=== PATIENT | female | born 2000 | race Hispanic/Latino ===

== ENCOUNTER 2023-08-13 21:19 | Day surgery (SDC) | payer OTHER ==
[2023-08-13 22:04] VITALS: BMI 41.7
[2023-08-13] MEDS ORDERED: hydrALAZINE 20 MG/ML VIAL SLOW IVP PRN (22:42)
[2023-08-13] MEDS ORDERED: Acetaminophen 500 MG TAB PO SCH (23:00)
[2023-08-13 23:09] LABS: Creatinine, Urine 149.05 mg/dL (47-110)
[2023-08-13 23:22] LABS: #Eosinphils 0.1 10x3/uL (0.0-0.5); #Monocytes 0.9 10x3/uL (0.0-1.1); #Neutrophils 7.3 10x3/uL (1.5-8.4); %Basophils 0.3 % (0.0-2.0); %Eosinophils 0.6 % (0.0-6.0); %Lymphocytes 22.7 % (18.0-47.0); %Monocytes 8.1 % (0.0-10.0); %Neutrophils 67.7 % (40.0-75.0); Hematocrit 35.7 % (34.9-44.5); Hemoglobin 11.8 g/dL (12.0-15.5); Mean Corpuscular HGB CONC 33.1 g/dL (32.0-36.0); Mean Corpuscular Hemoglobin 27.4 pg (27.0-33.0); Mean Corpuscular Volume 82.8 fl (81.6-98.3); Mean Platelet Volume 11.5 fl (7.4-10.4); Platelet Count 216 10x3/uL (150-450); RBC Distribution Width 13.5 % (11.5-14.5); Red Blood Cell (RBC) Count 4.31 10x6/uL (3.90-5.03); White Blood Cell (WBC) Count 10.9 10x3/uL (3.5-10.5)
[2023-08-13 23:34] LABS: ALT (SGPT) 8 U/L (8-55); AST (SGOT) 12 U/L (5-34); Albumin 3.2 g/dL (3.5-5.0); Alkaline Phosphatase 79 U/L (40-110); Anion Gap 15 mmol/L (10-20); BUN (Urea Nitrogen) 9 mg/dL (7.0-18.7); Bilirubin, Total 0.3 mg/dL (0.2-1.2); Calc. Creatinine Clearance 183 mL/min (70-130); Carbon Dioxide 20 mmol/L (22-29); Chloride 103 mmol/L (98-107); Estimated GFR 114; Glucose 193 mg/dL (70-105); Potassium 3.7 mmol/L (3.5-5.1); Protein, Total 6.2 g/dL (6.0-8.3); Sodium 134 mmol/L (136-145)
== END 2023-08-14 00:35 | disposition home or self-care (01) ==
LOC: CSHLD/OP 21:19
PROVIDERS: ATTEND Student in an Organized Health Care Education/Training Program
DX: O99.891 Other specified diseases and conditions complicating pregnancy (principal); O99.213 Obesity complicating pregnancy, third trimester; O24.113 Pre-existing type 2 diabetes mellitus, in pregnancy, third trimester; R51.9 Headache, unspecified; Z79.899 Other long term (current) drug therapy; Z79.84 Long term (current) use of oral hypoglycemic drugs; Z79.4 Long term (current) use of insulin; Z3A.34 34 weeks gestation of pregnancy
CPT/HCPCS: 80053; 82570; 84156; 85025; 99283

== ENCOUNTER 2023-08-19 12:10 | Day surgery (SDC) | payer OTHER ==
[2023-08-19 12:42] VITALS: BMI 41.7
[2023-08-19] MEDS ORDERED: hydrALAZINE 20 MG/ML VIAL SLOW IVP PRN (12:50)
[2023-08-19] MEDS ORDERED: Acetaminophen 500 MG TAB PO SCH (13:00)
[2023-08-19 13:52] LABS: #Monocytes 0.7 10x3/uL (0.0-1.1); %Basophils 0.2 % (0.0-2.0); %Eosinophils 0.4 % (0.0-6.0); %Lymphocytes 18.4 % (18.0-47.0); %Monocytes 6.4 % (0.0-10.0); %Neutrophils 73.9 % (40.0-75.0); Hematocrit 39.3 % (34.9-44.5); Hemoglobin 13.2 g/dL (12.0-15.5); Mean Corpuscular HGB CONC 33.6 g/dL (32.0-36.0); Mean Corpuscular Hemoglobin 27.3 pg (27.0-33.0); Mean Corpuscular Volume 81.2 fl (81.6-98.3); Platelet Count 249 10x3/uL (150-450); RBC Distribution Width 13.8 % (11.5-14.5); Red Blood Cell (RBC) Count 4.84 10x6/uL (3.90-5.03); White Blood Cell (WBC) Count 10.8 10x3/uL (3.5-10.5)
[2023-08-19 15:42] LABS: ALT (SGPT) 11 U/L (8-55); AST (SGOT) 15 U/L (5-34); Albumin 3.5 g/dL (3.5-5.0); Alkaline Phosphatase 94 U/L (40-110); Anion Gap 18 mmol/L (10-20); BUN (Urea Nitrogen) 6 mg/dL (7.0-18.7); Bilirubin, Total 0.3 mg/dL (0.2-1.2); Calc. Creatinine Clearance 225 mL/min (70-130); Calcium 8.9 mg/dL (7.8-10.44); Carbon Dioxide 16 mmol/L (22-29); Chloride 105 mmol/L (98-107); Estimated GFR 128; Globulin 2.9 g/dL (2.4-3.5); Glucose 75 mg/dL (70-105); Potassium 3.7 mmol/L (3.5-5.1); Protein, Total 6.4 g/dL (6.0-8.3); Sodium 135 mmol/L (136-145)
== END 2023-08-19 16:23 | disposition home or self-care (01) ==
LOC: CSHLD/OP 12:10
PROVIDERS: ATTEND Student in an Organized Health Care Education/Training Program
DX: O99.891 Other specified diseases and conditions complicating pregnancy (principal); R51.9 Headache, unspecified; O24.113 Pre-existing type 2 diabetes mellitus, in pregnancy, third trimester; O99.513 Diseases of the respiratory system complicating pregnancy, third trimester; J45.909 Unspecified asthma, uncomplicated; O26.893 Other specified pregnancy related conditions, third trimester; O12.13 Gestational proteinuria, third trimester; Z3A.35 35 weeks gestation of pregnancy
CPT/HCPCS: 36415; 80053; 82570; 84156; 85025

== ENCOUNTER 2023-08-30 18:00 | Inpatient (IN) | payer OTHER ==
[2023-08-31] MEDS ORDERED: HYDROcodone/Acetaminophen 5/325 mg Tablet PO PRN (06:45)
[2023-08-31] MEDS ORDERED: Acetaminophen 500 MG TAB PO PRN (06:45)
[2023-08-31] MEDS ORDERED: Ibuprofen 800 MG TAB PO PRN (06:45)
[2023-08-31] MEDS ORDERED: fentaNYL 50 mcg/mL 1 mL Vial SLOW IVP PRN (06:45)
[2023-08-31] MEDS ORDERED: Diphenoxylate HCl/Atropine Tablet PO PRN (06:45)
[2023-08-31] MEDS ORDERED: hydrALAZINE 20 MG/ML VIAL SLOW IVP PRN ×3 (06:45)
[2023-08-31] MEDS ORDERED: Promethazine HCl 25 MG/ML VIAL IM PRN ×2 (06:45→10:12)
[2023-08-31] MEDS ORDERED: Labetalol HCl 100 MG/20 ML VIAL SLOW IVP PRN ×2 (06:45)
[2023-08-31] MEDS ORDERED: Misoprostol 200 MCG TAB PR PRN (06:45)
[2023-08-31] MEDS ORDERED: Lorazepam 2 MG/ML VIAL SLOW IVP PRN (06:45)
[2023-08-31] MEDS ORDERED: Ondansetron PF 4 MG/2 ML Vial IVP PRN ×2 (06:45→10:12)
[2023-08-31] MEDS ORDERED: Calcium Gluc 4.6 MEQ/10 ML (100 MG/ML) SLOW IVP PRN (06:45)
[2023-08-31] MEDS ORDERED: Carboprost 250 MCG/ML AMP IM PRN (06:45)
[2023-08-31] MEDS ORDERED: Lidocaine 1% (PF) 30 ML VIAL SC PRN (06:45)
[2023-08-31] MEDS ORDERED: Lactated Ringer's 1,000 ML IV SCH (06:45)
[2023-08-31] MEDS ORDERED: Oxytocin 30 units/NS 500 ML 500 ML IV SCH (06:45)
[2023-08-31 07:40] VITALS: BMI 42.3
[2023-08-31 07:56] LABS: Hematocrit 40.4 % (34.9-44.5); Hemoglobin 13.5 g/dL (12.0-15.5); Mean Corpuscular HGB CONC 33.4 g/dL (32.0-36.0); Mean Corpuscular Hemoglobin 28.2 pg (27.0-33.0); Mean Corpuscular Volume 84.3 fl (81.6-98.3); Mean Platelet Volume 11.7 fl (7.4-10.4); Platelet Count 209 10x3/uL (150-450); RBC Distribution Width 13.6 % (11.5-14.5); Red Blood Cell (RBC) Count 4.79 10x6/uL (3.90-5.03); White Blood Cell (WBC) Count 13.5 10x3/uL (3.5-10.5)
[2023-08-31 08:27] LABS: Syphilis Antibody Nonreactive (Nonreactive); Syphilis Antibody Index 0.06 S/CO (<1.00 Non-Reactive)
[2023-08-31 08:29] LABS: HBSAg Index 0.16 S/CO (0-0.99); Hep B Surf Ag - L&D Non-Reactive S/CO (NonReactive)
[2023-08-31] MEDS ORDERED: Dextrose 5% in Water 1,000 ML IV PRN (09:12)
[2023-08-31] MEDS ORDERED: Dextrose 50% Abboject 50 ML SYRINGE SLOW IVP PRN (09:15)
[2023-08-31] MEDS ORDERED: Glucagon 1 MG/ML KIT IM PRN (09:15)
[2023-08-31] MEDS ORDERED: fentaNYL/Ropivacaine Epidural 100 ML ONE (09:18)
[2023-08-31] MEDS ORDERED: Magnesium Sulfate 20 gm/500 ml 20 GM/500 ML BAG ONE ×2 (09:27→17:12)
[2023-08-31] MEDS: Insulin Regular 300 UNITS/3 ML VIAL SC PRN ×2 (09:33→13:31)
[2023-08-31 10:04] LABS: ALT (SGPT) 12 U/L (8-55); AST (SGOT) 22 U/L (5-34); Albumin 3.6 g/dL (3.5-5.0); Alkaline Phosphatase 110 U/L (40-110); Anion Gap 18 mmol/L (10-20); BUN (Urea Nitrogen) 9 mg/dL (7.0-18.7); Bilirubin, Total 0.3 mg/dL (0.2-1.2); Calc. Creatinine Clearance 196 mL/min (70-130); Calcium 9.2 mg/dL (7.8-10.44); Carbon Dioxide 19 mmol/L (22-29); Chloride 104 mmol/L (98-107); Estimated GFR 122; Globulin 2.9 g/dL (2.4-3.5); Glucose 213 mg/dL (70-105); Potassium 4.3 mmol/L (3.5-5.1); Protein, Total 6.5 g/dL (6.0-8.3); Sodium 137 mmol/L (136-145)
[2023-08-31] MEDS ORDERED: ePHEDrine Sulfate 50 MG/10 ML VIAL SLOW IVP PRN (10:12)
[2023-08-31] MEDS ORDERED: Naloxone HCl 0.4 mg/ml Vial IVP PRN ×2 (10:12)
[2023-08-31] MEDS ORDERED: Acetaminophen 325 MG TAB PO PRN (10:12)
[2023-08-31] MEDS ORDERED: Moisturizing Cream (Eucerin) 113 GM JAR TOP PRN (10:12)
[2023-08-31] MEDS ORDERED: diphenhydrAMINE 50 MG/ML VIAL IVP PRN (10:12)
[2023-08-31] MEDS ORDERED: Lactated Ringer's 500 ML IV PRN (10:12)
[2023-08-31] MEDS ORDERED: fentaNYL 2 mcg/Ropivacaine 0.2% Epidural 100 ML CADD EPIDURAL SCH (10:15)
[2023-08-31] MEDS ORDERED: Communication Order-Pharmacy FS SCH (10:15)
[2023-08-31] MEDS: Oxytocin 30 units/NS 500 ML 500 ML IV SCH ×2 (20:43→21:25)
[2023-08-31] MEDS ORDERED: Tranexamic Acid 1,000 MG/10 ML VIAL ONE (20:51)
[2023-08-31 21:27] LABS: Hematocrit 35.9 % (34.9-44.5); Platelet Count 223 10x3/uL (150-450)
[2023-08-31 22:14] LABS: D-Dimer Test 2.2 mcg/mL (0.19-0.50); INR-International Normal Ratio 0.9; PTT 26.8 sec (22.0-33.0); Prothrombin Time 9.3 sec (9.5-12.1)
[2023-09-01] MEDS ORDERED: Magnesium Sulfate 20 gm/500 ml 20 GM/500 ML BAG ONE ×2 (03:17→13:36)
[2023-09-01] MEDS ORDERED: Milk Of Magnesia 30 ML UDCUP PO PRN ×2 (05:44→19:43)
[2023-09-01] MEDS ORDERED: Preparation H Ointment 28 GM TUBE PR PRN ×2 (05:44→19:43)
[2023-09-01] MEDS ORDERED: Ondansetron PF 4 MG/2 ML Vial IVP PRN ×2 (05:44→19:43)
[2023-09-01] MEDS ORDERED: Boostrix 0.5 ML (Tdap) VIAL (>/=7 yrs of age) IM ONE (05:44)
[2023-09-01] MEDS ORDERED: Bisacodyl 10 MG SUPP PR PRN ×2 (05:44→19:43)
[2023-09-01] MEDS ORDERED: HYDROcodone/Acetaminophen 5/325 mg Tablet PO PRN ×4 (05:44→19:43)
[2023-09-01] MEDS ORDERED: hydrALAZINE 20 MG/ML VIAL SLOW IVP PRN ×4 (05:44→19:43)
[2023-09-01] MEDS ORDERED: diphenhydrAMINE 25 MG CAP PO PRN (05:44)
[2023-09-01] MEDS ORDERED: Labetalol HCl 100 MG/20 ML VIAL SLOW IVP PRN ×2 (05:44)
[2023-09-01] MEDS ORDERED: Promethazine HCl 25 MG/ML VIAL IM PRN ×2 (05:44→19:43)
[2023-09-01] MEDS ORDERED: Lanolin Ointment 7 GM TUBE TOP PRN ×2 (05:44→19:43)
[2023-09-01] MEDS ORDERED: Calcium Gluc 4.6 MEQ/10 ML (100 MG/ML) SLOW IVP PRN ×2 (05:44)
[2023-09-01] MEDS ORDERED: Lorazepam 2 MG/ML VIAL SLOW IVP PRN ×2 (05:44)
[2023-09-01] MEDS ORDERED: Ibuprofen 800 MG TAB PO SCH ×2 (06:00→14:00)
[2023-09-01] MEDS: Ferrous Sulfate 325 MG TAB PO SCH ×2 (08:17→18:24)
[2023-09-01] MEDS: metFORMIN 500 MG TAB PO SCH ×2 (08:18→18:28)
[2023-09-01] MEDS ORDERED: Docusate 100 MG CAP PO SCH (09:00)
[2023-09-01] MEDS ORDERED: Prenatal Vitamin 1 TAB PO SCH (09:00)
[2023-09-01] MEDS ORDERED: Bupivacaine 0.25% HCL 30 ML VIAL ONE (12:00)
[2023-09-01] MEDS ORDERED: Magnesium Sulfate 20 gm/500 ml 20 GM/500 ML BAG IVPB SCH (14:45)
[2023-09-01] MEDS ORDERED: Benzocaine-Menthol 82.5 ML CAN TOP PRN (19:43)
[2023-09-01] MEDS ORDERED: Ferrous Sulfate 325 MG TAB PO SCH (20:00)
[2023-09-01] MEDS: Ibuprofen 800 MG TAB PO SCH (23:03)
[2023-09-01] MEDS: Docusate 100 MG CAP PO SCH (23:04)
[2023-09-02 04:42] LABS: Hematocrit 24.5 % (34.9-44.5); Mean Corpuscular HGB CONC 32.7 g/dL (32.0-36.0); Mean Corpuscular Hemoglobin 27.9 pg (27.0-33.0); Mean Corpuscular Volume 85.4 fl (81.6-98.3); Mean Platelet Volume 11.5 fl (7.4-10.4); Platelet Count 176 10x3/uL (150-450); RBC Distribution Width 14.5 % (11.5-14.5); Red Blood Cell (RBC) Count 2.87 10x6/uL (3.90-5.03); White Blood Cell (WBC) Count 11.4 10x3/uL (3.5-10.5)
[2023-09-02] MEDS: Ibuprofen 800 MG TAB PO SCH ×2 (06:04→14:53)
[2023-09-02] MEDS: Docusate 100 MG CAP PO SCH (08:18)
[2023-09-02] MEDS: Ferrous Sulfate 325 MG TAB PO SCH ×2 (08:18→17:08)
[2023-09-02] MEDS ORDERED: Prenatal Vitamin 1 TAB PO SCH (09:00)
[2023-09-02] MEDS ORDERED: Acetaminophen 500 MG TAB PO PRN (11:33)
[2023-09-02 11:39] VITALS: TEMP 98.3
[2023-09-02 16:08] VITALS: BP 135/78
[2023-09-02] MEDS ORDERED: metFORMIN 500 MG TAB PO SCH (17:00)
== END 2023-09-02 17:37 | disposition home or self-care (01) | DRG 806 ==
LOC: CSHLD 08-31 06:33 → CSHPP 09-01 22:20
PROVIDERS: ADMIT Student in an Organized Health Care Education/Training Program; ATTEND Student in an Organized Health Care Education/Training Program
PROC: 10E0XZZ Delivery of Products of Conception, External Approach (ICD-10-PCS; principal; 2023-08-31)
PROC: 0KQM0ZZ Repair Perineum Muscle, Open Approach (ICD-10-PCS; 2023-08-31)
PROC: 3E0334Z Introduction of Serum, Toxoid and Vaccine into Peripheral Vein, Percutaneous Approach (ICD-10-PCS; 2023-08-31)
DX: O14.04 Mild to moderate pre-eclampsia, complicating childbirth (principal); D62 Acute posthemorrhagic anemia; Z37.0 Single live birth; Z3A.37 37 weeks gestation of pregnancy; O70.1 Second degree perineal laceration during delivery; O24.93 Unspecified diabetes mellitus in the puerperium; O26.893 Other specified pregnancy related conditions, third trimester; Z67.11 Type A blood, Rh negative
CPT/HCPCS: 36415; 36416; 51702; 80053; 85027; 85049; 85300; 85362; 85384; 85461; 85610; 85730; 86780; 86850; 86900; 86901; 87340; 90384; 96372; J0360; J0665; J1815; J2590; J3475

== ENCOUNTER 2023-09-04 18:31 | Inpatient (IN) | payer OTHER ==
[2023-09-04] MEDS ORDERED: Labetalol HCl 100 MG/20 ML VIAL ONE (20:19)
[2023-09-04 20:30] LABS: #Eosinphils 0.1 10x3/uL (0.0-0.5); #Monocytes 0.6 10x3/uL (0.0-1.1); #Neutrophils 5.6 10x3/uL (1.5-8.4); %Basophils 0.3 % (0.0-2.0); %Eosinophils 1.5 % (0.0-6.0); %Lymphocytes 24.5 % (18.0-47.0); %Monocytes 6.5 % (0.0-10.0); Hematocrit 25.9 % (34.9-44.5); Hemoglobin 8.5 g/dL (12.0-15.5); Mean Corpuscular HGB CONC 32.8 g/dL (32.0-36.0); Mean Corpuscular Hemoglobin 28.6 pg (27.0-33.0); Mean Corpuscular Volume 87.2 fl (81.6-98.3); Mean Platelet Volume 10.6 fl (7.4-10.4); Platelet Count 246 10x3/uL (150-450); RBC Distribution Width 14.4 % (11.5-14.5); Red Blood Cell (RBC) Count 2.97 10x6/uL (3.90-5.03); White Blood Cell (WBC) Count 8.6 10x3/uL (3.5-10.5)
[2023-09-04 20:33] LABS: ALT (SGPT) 20 U/L (8-55); AST (SGOT) 24 U/L (5-34); Albumin 3.4 g/dL (3.5-5.0); Alkaline Phosphatase 69 U/L (40-110); Anion Gap 14 mmol/L (10-20); BUN (Urea Nitrogen) 9 mg/dL (7.0-18.7); Bilirubin, Total 0.5 mg/dL (0.2-1.2); Calc. Creatinine Clearance 0 mL/min (70-130); Calcium 8.5 mg/dL (7.8-10.44); Carbon Dioxide 24 mmol/L (22-29); Chloride 108 mmol/L (98-107); Estimated GFR 116; Globulin 2.5 g/dL (2.4-3.5); Glucose 114 mg/dL (70-105); Potassium 3.9 mmol/L (3.5-5.1); Protein, Total 5.9 g/dL (6.0-8.3); Sodium 142 mmol/L (136-145)
[2023-09-04 20:39] LABS: Troponin I Less than 0.010 ng/mL (< 0.028)
[2023-09-04] MEDS ORDERED: hydrALAZINE 20 MG/ML VIAL SLOW IVP PRN ×3 (21:05)
[2023-09-04] MEDS ORDERED: Calcium Gluc 4.6 MEQ/10 ML (100 MG/ML) SLOW IVP PRN (21:05)
[2023-09-04] MEDS ORDERED: Ondansetron PF 4 MG/2 ML Vial IVP PRN (21:05)
[2023-09-04] MEDS ORDERED: Lorazepam 2 MG/ML VIAL SLOW IVP PRN (21:05)
[2023-09-04] MEDS ORDERED: Zolpidem Tartrate 5 MG TAB PO PRN (21:05)
[2023-09-04] MEDS ORDERED: Labetalol HCl 100 MG/20 ML VIAL SLOW IVP PRN ×2 (21:05)
[2023-09-04] MEDS ORDERED: Promethazine HCl 25 MG/ML VIAL IM PRN (21:05)
[2023-09-04 21:34] LABS: Bilirubin Neg (Negative); Blood, Urine 250 (Negative); Clarity Cloudy (Clear); Glucose, Urine (Dipstick) Normal (Negative); Ketone, Urine Negative (Negative); Leukocyte 500 (Negative); Nitrite Negative (Negative); Protein, Urine (Dipstick) 100 mg/dl (Neg-Trace)
[2023-09-04] MEDS: Magnesium Sulfate 20 gm/500 ml 20 GM/500 ML BAG IVPB SCH (22:00)
[2023-09-04] MEDS: Lactated Ringer's 1,000 ML IV SCH (22:00)
[2023-09-04 22:10] LABS: Bacteria/HPF 1+ HPF (None Seen); CAUTI Indications for Culture Pregnancy; RBC/HPF Greater than 50 HPF (0-3); Squamous Epithelial 0-3 HPF (0-3)
[2023-09-04 22:12] LABS: Urine Culture Reflex Yes Yes
[2023-09-04 22:19] VITALS: BMI 37.8
[2023-09-04] MEDS: Labetalol HCl 200 MG TAB PO SCH (22:44)
[2023-09-04] MEDS: Ibuprofen 600 MG TAB PO PRN (23:09)
[2023-09-04 23:44] LABS: Troponin I Less than 0.010 ng/mL (< 0.028)
[2023-09-05 04:17] LABS: Troponin I Less than 0.010 ng/mL (< 0.028)
[2023-09-05] MEDS: Docusate 100 MG CAP PO PRN (09:32)
[2023-09-05] MEDS: Labetalol HCl 200 MG TAB PO SCH (09:33)
[2023-09-05] MEDS: Ferrous Sulfate 325 MG TAB PO SCH (09:33)
[2023-09-05] MEDS: metFORMIN 500 MG TAB PO SCH (09:33)
[2023-09-06] MEDS: Acetaminophen 500 MG TAB PO PRN (00:12)
[2023-09-06] MEDS: Ibuprofen 200 MG TAB PO PRN (05:46)
[2023-09-07 04:30] VITALS: TEMP 98.3
[2023-09-07 07:33] VITALS: BP 127/83
== END 2023-09-07 13:00 | disposition home or self-care (01) | DRG 776 ==
LOC: CSHERS 18:31 → CSHLD/OP 20:46 → CSHLD 20:53 → OBSVTOIN 20:54 → CSHPP 09-05 23:28
PROVIDERS: ADMIT Obstetrics & Gynecology; ATTEND Obstetrics & Gynecology
DX: O13.5 Gestational [pregnancy-induced] hypertension without significant proteinuria, complicating the puerperium (principal); J45.909 Unspecified asthma, uncomplicated; Z79.84 Long term (current) use of oral hypoglycemic drugs; Z79.899 Other long term (current) drug therapy; O99.52 Diseases of the respiratory system complicating childbirth; O24.13 Pre-existing type 2 diabetes mellitus, in the puerperium
CPT/HCPCS: 36415; 36416; 80053; 81001; 84484; 85025; 87086; 93005; 93010; 96374; 99285; J3475; J7120

== ENCOUNTER 2024-05-16 08:07 | Day surgery (SDC) | payer OTHER ==
[~2024-05-16 08:07] MED LIST: Ipratropium/Albuterol 3 ML NEB NEB PRN; Morphine 2 MG/ML VIAL SLOW IVP PRN; Morphine 4 MG/ML VIAL SLOW IVP PRN; Ondansetron PF 4 MG/2 ML Vial IVP PRN; hydrALAZINE 20 MG/ML VIAL SLOW IVP PRN
[2024-05-16] MEDS ORDERED: Sodium Chloride 0.9% 1,000 ML IV SCH (08:15)
[2024-05-16] MEDS ORDERED: Piperacillin/Tazobactam 3.375 GM in Sodium Chloride 0.9% 100 ML IVPB SCH ×2 (08:15→12:15)
[2024-05-16] MEDS ORDERED: Famotidine/PF 20 mg/2ml Vial SLOW IVP SCH (09:00)
[2024-05-16] MEDS ORDERED: Ondansetron PF 4 MG/2 ML Vial ONE (11:15)
[2024-05-16] MEDS ORDERED: Rocuronium Bromide 10 MG/ML (10ML VIAL) ONE (11:15)
[2024-05-16] MEDS ORDERED: SUGAMMADEX SODIUM 200 MG/2 ML VIAL ONE (11:15)
[2024-05-16] MEDS ORDERED: Midazolam HCl 2 mg/2 ml Vial ONE (11:15)
[2024-05-16] MEDS ORDERED: Lidocaine 1% PF 5 ML VIAL ONE (11:15)
[2024-05-16] MEDS ORDERED: PROPOFOL 20 ML ONE (11:15)
[2024-05-16] MEDS ORDERED: fentaNYL 50 mcg/mL 1 mL Vial ONE ×4 (11:15→12:50)
[2024-05-16] MEDS ORDERED: Dexamethasone 20 MG/5 ML VIAL ONE (11:15)
[2024-05-16] MEDS ORDERED: Glucagon 1 MG/ML KIT ONE (11:38)
[2024-05-16] MEDS ORDERED: Bupivacaine HCl 0.5%/Epinephrine 1:200,000/PF 30 ml Vial ONE ×2 (11:38→11:41)
[2024-05-16] MEDS ORDERED: Iopamidol 0 ML ONE (11:40)
[2024-05-16] MEDS ORDERED: Ketorolac Tromethamine 30 MG (1 mL) VIAL IVP SCH (12:00)
[2024-05-16] MEDS ORDERED: Ketorolac Tromethamine 30 MG (1 mL) VIAL ONE (13:09)
[2024-05-16] MEDS ORDERED: HYDROcodone/Acetaminophen 5/325 mg Tablet ONE (13:48)
== END 2024-05-16 14:25 | disposition home or self-care (01) ==
LOC: CSHSDC/OP 08:07
PROVIDERS: ATTEND Surgery
PROC: 0FT44ZZ Resection of Gallbladder, Percutaneous Endoscopic Approach (ICD-10-PCS; principal; 2024-05-16)
DX: K80.12 Calculus of gallbladder with acute and chronic cholecystitis without obstruction (principal); E11.9 Type 2 diabetes mellitus without complications
CPT/HCPCS: 88304; C1889; J1100; J1611; J1885; J2250; J2405; J2543; J2704; J3010; Q9967